=== PATIENT | female | born 1985 | race American Indian/Alaskan Native ===

== ENCOUNTER 2016-10-10 22:00 | Emergency (ER) | payer OTHER, MEDICAID ==
[2016-10-10 22:16] VITALS: BP 129/96
[2016-10-10] MEDS ORDERED: TYLENOL ONE (23:32)
[2016-10-10] MEDS ORDERED: TYLENOL PO ONE (23:35)
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
[2016-10-11] MEDS ORDERED: TORADOL IM ONE (00:59)
[2016-10-11] MEDS ORDERED: FLEXERIL PO ONE (00:59)
== END 2016-10-11 01:31 | disposition home or self-care (01) ==
LOC: ED 22:00
DX: M25.519 Pain in unspecified shoulder (principal); V49.9XXA Car occupant (driver) (passenger) injured in unspecified traffic accident, initial encounter; Y93.89 Activity, other specified; Y92.89 Other specified places as the place of occurrence of the external cause; Y99.8 Other external cause status
CPT/HCPCS: 96372; 99282; J1885

== ENCOUNTER 2017-05-23 16:53 | Emergency (ER) | payer MEDICAID ==
[2017-05-23] MEDS ORDERED: MOTRIN PO ONE (22:51)
[2017-05-23] MEDS ORDERED: TESSALON PERLES PO ONE (22:51)
--- NOTE | 2017-05-23 22:56 | Emergency Department Report ---
- General Chief Complaint: Upper Respiratory Infection Stated Complaint: FLU LIKE SYMPTOMS Time Seen by Provider: 05/23/17 22:30 Source: patient Mode of arrival: Ambulatory Limitations: No Limitations - History of Present Illness Initial Comments: This is a 31-year-old female nontoxic, well nourished in appearance, no acute signs of distress presents to the ED with c/o of productive cough, body aches, rhinorrhea, nasal congestion x3 days. Patient describes productive cough as yellow mucus production. Patient stated has been in close contact with son that is diagnosed with the flu. Patient denies any recent travels, long car, recent hospital stays. Patient denies any calf pain or calf tenderness. Patient denies any chest pain, short of breath, fever, chills, nausea, vomiting , hemoptysis, numbness, tingling, headache or stiff neck. Patient denies any drug allergies. Patient denies any allergies. PMH includes bronchitis. MD Complaint: cough, rhinorrhea, nasal congestion, other (body aches) -: days(s) (3) Severity: mild Severity scale (0 -10): 8 Quality: aching Consistency: constant Improves With: nothing Worsens With: nothing Context: sick contacts Associated Symptoms: rhinorrhea, nasal congestion, cough. denies: fever, chills , myalgias, diaphoresis, headache, sore throat, stiff neck, chest pain, shortness of breath, abdominal pain, nausea, vomiting, diarrhea, dysuria, rash, confusion, weight loss, epistaxis, hoarseness, ear pain Treatments Prior to Arrival: none - Related Data Previous Rx's Medication Instructions Recorded Last Taken Type Cyclobenzaprine [Flexeril 10 MG 10 mg PO QHS #24 tablet 10/11/16 Unknown Rx TAB] Diclofenac Potassium 50 mg PO BID #30 tablet 10/11/16 Unknown Rx Azithromycin [Zithromax Z-BRYCE] 250 mg PO DAILY #6 tablet 05/23/17 Unknown Rx Benzonatate [Tessalon Perle] 100 mg PO Q6H PRN #20 capsule 05/23/17 Unknown Rx Ibuprofen [Motrin] 600 mg PO Q8H PRN #30 tablet 05/23/17 Unknown Rx Oseltamivir [Tamiflu] 75 mg PO BID #14 cap 05/23/17 Unknown Rx Allergies Allergy/AdvReac Type Severity Reaction Status Date / Time No Known Allergies Allergy Verified 10/10/16 23:45 ED Review of Systems ROS: Stated complaint: FLU LIKE SYMPTOMS Other details as noted in HPI Constitutional: denies: chills, fever Eyes: denies: eye pain, eye discharge, vision change ENT: denies: ear pain, throat pain Respiratory: cough. denies: shortness of breath, wheezing Cardiovascular: denies: chest pain, palpitations Endocrine: no symptoms reported Gastrointestinal: denies: abdominal pain, nausea, diarrhea Genitourinary: denies: urgency, dysuria, discharge Musculoskeletal: denies: back pain, joint swelling, arthralgia Skin: denies: rash, lesions Neurological: denies: headache, weakness, paresthesias Psychiatric: denies: anxiety, depression Hematological/Lymphatic: denies: easy bleeding, easy bruising ED Past Medical Hx - Past Medical History Previous Medical History?: Yes Additional medical history: Bronchitis - Surgical History Past Surgical History?: Yes Additional Surgical History: 2 c sections and a tubal ligation - Social History Smoking Status: Never Smoker Substance Use Type: None - Medications Home Medications: Home Medications Medication Instructions Recorded Confirmed Last Taken Type Cyclobenzaprine [Flexeril 10 MG 10 mg PO QHS #24 tablet 10/11/16 Unknown Rx TAB] Diclofenac Potassium 50 mg PO BID #30 tablet 10/11/16 Unknown Rx Azithromycin [Zithromax Z-BRYCE] 250 mg PO DAILY #6 tablet 05/23/17 Unknown Rx Benzonatate [Tessalon Perle] 100 mg PO Q6H PRN #20 capsule 05/23/17 Unknown Rx Ibuprofen [Motrin] 600 mg PO Q8H PRN #30 tablet 05/23/17 Unknown Rx Oseltamivir [Tamiflu] 75 mg PO BID #14 cap 05/23/17 Unknown Rx ED Physical Exam - General Limitations: No Limitations General appearance: alert, in no apparent distress - Head Head exam: Present: atraumatic, normocephalic - Eye Eye exam: Present: normal appearance, PERRL, EOMI Pupils: Present: normal accommodation - ENT ENT exam: Present: normal exam, normal orophraynx, mucous membranes moist, TM's normal bilaterally, normal external ear exam - Neck Neck exam: Present: normal inspection, full ROM. Absent: tenderness, meningismus, lymphadenopathy, thyromegaly - Respiratory Respiratory exam: Present: normal lung sounds bilaterally. Absent: respiratory distress, wheezes, rales, rhonchi, stridor, chest wall tenderness, accessory muscle use, decreased breath sounds, prolonged expiratory - Cardiovascular Cardiovascular Exam: Present: regular rate, normal rhythm, normal heart sounds. Absent: irregular rhythm, systolic murmur, diastolic murmur, rubs, gallop - GI/Abdominal GI/Abdominal exam: Present: soft, normal bowel sounds. Absent: distended, tenderness, guarding, rebound, rigid, diminished bowel sounds - Rectal Rectal exam: Present: deferred - Extremities Exam Extremities exam: Present: normal inspection, full ROM, normal capillary refill. Absent: tenderness, pedal edema, joint swelling, calf tenderness - Back Exam Back exam: Present: normal inspection, full ROM. Absent: tenderness, CVA tenderness (R), CVA tenderness (L), muscle spasm, paraspinal tenderness, vertebral tenderness, rash noted - Neurological Exam Neurological exam: Present: alert, oriented X3, CN II-XII intact, normal gait, reflexes normal - Psychiatric Psychiatric exam: Present: normal affect, normal mood - Skin Skin exam: Present: warm, dry, intact, normal color. Absent: rash ED Course Vital Signs 05/23/17 22:06 Temperature 98.8 F Pulse Rate 104 H Respiratory 18 Rate Blood Pressure 105/75 O2 Sat by Pulse 99 Oximetry - Reevaluation(s) Reevaluation #1: 05/23/17 22:59 Patient is speaking in full sentences with no signs of distress noted. ED Medical Decision Making - Medical Decision Making This is a 31-year-old female that presents with upper respiratory infection and influenza. Patient is stable and was examined by me. Chest x-ray has been obtained and dictated by radiologist with normal exam. Patient is notified of x -ray results with no questions noted. Patient is in close contact with son that is dx with the flu. Due to patient having symptoms of influenza and upper respiratory infection I will treat patient empirically with Tamiflu and zpak. Patient was instructed to increase hydration, rest and take Motrin for fever episodes. Patient received Motrin and tesslone perrls in the ED. Vitals stable. Patient is nonfebrile and normal heart rate. Patient was orally hydrated and patient tolerated well known nausea or vomiting. Patient was instructed Follow-up with a primary care doctor in 3-5 days or if symptoms worsen and continue return to emergency room as soon as possible. At time time of discharge, the patient does not seem toxic or ill in appearance. No acute signs of distress noted. Patient agrees to discharge treatment plan of care. No further questions noted by the patient. Critical care attestation.: If time is entered above; I have spent that time in minutes in the direct care of this critically ill patient, excluding procedure time. ED Disposition Clinical Impression: Influenza Upper respiratory infection Qualifiers: URI type: unspecified URI Qualified Code(s): J06.9 - Acute upper respiratory infection, unspecified Disposition: DC- TO HOME OR SELFCARE Is pt being admited?: No Does the pt Need Aspirin: No Condition: Stable Instructions: Benzonatate (By mouth), Ibuprofen (By mouth), Azithromycin (By mouth), Oseltamivir (By mouth), Influenza (ED), Upper Respiratory Infection (ED) Additional Instructions: Follow-up with a primary care doctor in 3-5 days or if symptoms worsen and continue return to emergency room as soon as possible. Increase rest, hydration and take Motrin for fever episodes. Prescriptions: Azithromycin [Zithromax Z-BRYCE] 250 mg PO DAILY #6 tablet Benzonatate [Tessalon Perle] 100 mg PO Q6H PRN #20 capsule PRN Reason: Cough Ibuprofen [Motrin] 600 mg PO Q8H PRN #30 tablet PRN Reason: fever Oseltamivir [Tamiflu] 75 mg PO BID #14 cap Referrals: PRIMARY CARE, [Primary Care Provider] - 3-5 Days AYESHA CARDOZO MD [Staff Physician] - 3-[address] [facility] [Outside] - 3-5 Days [facility] [Outside] - 3-5 Days Forms: Work/School Release Form(ED)
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
[2017-05-23 23:50] VITALS: BP 110/76
== END 2017-05-23 23:50 | disposition home or self-care (01) ==
LOC: ED 16:53
DX: J11.1 Influenza due to unidentified influenza virus with other respiratory manifestations (principal); J06.9 Acute upper respiratory infection, unspecified
CPT/HCPCS: 71046

== ENCOUNTER 2017-09-06 13:29 | Emergency (ER) | payer OTHER, MEDICAID ==
[2017-09-06 16:12] LABS: Basophils % (Auto) 0.7 % (0.0-1.8); Eosinophils # (Auto) 0.2 K/mm3 (0.0-0.4); Eosinophils % (Auto) 3.4 % (0.0-4.3); Hematocrit 35.1 % (30.3-42.9); Hemoglobin 11.1 gm/dl (10.1-14.3); Lymphocytes # (Auto) 2.8 K/mm3 (1.2-5.4); Lymphocytes % (Auto) 53.6 % (13.4-35.0); Mean Corpuscular HGB Conc 32 % (30-34); Mean Corpuscular Hemoglobin 26 pg (28-32); Mean Corpuscular Volume 82 fl (79-97); Monocytes # (Auto) 0.3 K/mm3 (0.0-0.8); Monocytes % (Auto) 5.3 % (0.0-7.3); Platelet Count 341 K/mm3 (140-440); Red Blood Count 4.27 M/mm3 (3.65-5.03)
[2017-09-06 16:34] LABS: Creatine Kinase MB 1.4 ng/mL (0.0-4.0)
[2017-09-06 16:36] LABS: Albumin 4.6 g/dL (3.9-5); BUN/Creatinine Ratio 7; Blood Urea Nitrogen 5 mg/dL (7-17); Calcium 9.4 mg/dL (8.4-10.2); Hemolysis Index 5
[2017-09-06 16:42] LABS: Bilirubin,Direct < 0.2 mg/dL (0-0.2)
[2017-09-06 17:00] LABS: Alanine Aminotransferase 11 units/L (7-56)
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
[2017-09-06 21:45] VITALS: BP 119/84
== END 2017-09-06 21:45 | disposition home or self-care (01) ==
LOC: ED 13:29
DX: S80.211A Abrasion, right knee, initial encounter (principal); V89.2XXA Person injured in unspecified motor-vehicle accident, traffic, initial encounter; Y93.89 Activity, other specified; Y92.89 Other specified places as the place of occurrence of the external cause; Y99.8 Other external cause status
CPT/HCPCS: 36415; 70450; 72125; 73562; 80048; 80074; 82550; 82553; 83735; 84703; 85025; 99285; G0480; 80320

== ENCOUNTER 2017-11-27 12:32 | Emergency (ER) | payer MEDICAID, OTHER ==
[2017-11-27 12:52] VITALS: BP 116/83
== END 2017-11-27 18:20 | disposition left against medical advice (07) ==
LOC: ED 12:32
DX: Z48.02 Encounter for removal of sutures (principal); Z53.21 Procedure and treatment not carried out due to patient leaving prior to being seen by health care provider

== ENCOUNTER 2017-12-07 11:16 | Emergency (ER) | payer MEDICAID ==
[2017-12-07 11:22] VITALS: BP 141/90
[2017-12-07] MEDS ORDERED: MOTRIN PO ONE (12:51)
--- NOTE | 2017-12-07 12:56 | Emergency Department Report ---
ED ENT HPI - General Chief complaint: Dental/Oral Stated complaint: BROKE TOOTH/PAIN Time Seen by Provider: 12/07/17 12:39 Source: patient Mode of arrival: Ambulatory Limitations: No Limitations - History of Present Illness Initial comments: 32-year-old female with a past medical history of bronchitis but is also complaining of a fractured tooth 1 week in pain for several days. Patient concerned that may be affected since food since a call into the fractured tooth. She complains of mild facial swelling that has since resolved. No pains of fever, difficulty breathing, or difficulty swallowing. Pain worse with palpation and chewing. - Related Data Previous Rx's Medication Instructions Recorded Last Taken Type Cyclobenzaprine [Flexeril 10 MG 10 mg PO QHS #24 tablet 10/11/16 Unknown Rx TAB] Diclofenac Potassium 50 mg PO BID #30 tablet 10/11/16 Unknown Rx Azithromycin [Zithromax Z-BRYCE] 250 mg PO DAILY #6 tablet 05/23/17 Unknown Rx Benzonatate [Tessalon Perle] 100 mg PO Q6H PRN #20 capsule 05/23/17 Unknown Rx Ibuprofen [Motrin] 600 mg PO Q8H PRN #30 tablet 05/23/17 Unknown Rx Oseltamivir [Tamiflu] 75 mg PO BID #14 cap 05/23/17 Unknown Rx Ibuprofen [Motrin] 600 mg PO Q8H PRN #30 tablet 12/07/17 Unknown Rx Penicillin Vk [Veetids TAB] 500 mg PO QID 7 Days tablet 12/07/17 Unknown Rx traMADol [Ultram 50 MG tab] 50 mg PO Q6HR PRN #20 tablet 12/07/17 Unknown Rx Allergies Allergy/AdvReac Type Severity Reaction Status Date / Time No Known Allergies Allergy Verified 11/27/17 12:51 ED Dental HPI - General Chief complaint: Dental/Oral Stated complaint: BROKE TOOTH/PAIN Time Seen by Provider: 12/07/17 12:39 Source: patient Mode of arrival: Ambulatory Limitations: No Limitations - Related Data Previous Rx's Medication Instructions Recorded Last Taken Type Cyclobenzaprine [Flexeril 10 MG 10 mg PO QHS #24 tablet 10/11/16 Unknown Rx TAB] Diclofenac Potassium 50 mg PO BID #30 tablet 10/11/16 Unknown Rx Azithromycin [Zithromax Z-BRYCE] 250 mg PO DAILY #6 tablet 05/23/17 Unknown Rx Benzonatate [Tessalon Perle] 100 mg PO Q6H PRN #20 capsule 05/23/17 Unknown Rx Ibuprofen [Motrin] 600 mg PO Q8H PRN #30 tablet 05/23/17 Unknown Rx Oseltamivir [Tamiflu] 75 mg PO BID #14 cap 05/23/17 Unknown Rx Ibuprofen [Motrin] 600 mg PO Q8H PRN #30 tablet 12/07/17 Unknown Rx Penicillin Vk [Veetids TAB] 500 mg PO QID 7 Days tablet 12/07/17 Unknown Rx traMADol [Ultram 50 MG tab] 50 mg PO Q6HR PRN #20 tablet 12/07/17 Unknown Rx Allergies Allergy/AdvReac Type Severity Reaction Status Date / Time No Known Allergies Allergy Verified 11/27/17 12:51 ED Review of Systems ROS: Stated complaint: BROKE TOOTH/PAIN Other details as noted in HPI ED Past Medical Hx - Past Medical History Previous Medical History?: Yes Additional medical history: Bronchitis - Surgical History Past Surgical History?: Yes Additional Surgical History: 2 c sections and a tubal ligation - Social History Smoking Status: Never Smoker Substance Use Type: None - Medications Home Medications: Home Medications Medication Instructions Recorded Confirmed Last Taken Type Cyclobenzaprine [Flexeril 10 MG 10 mg PO QHS #24 tablet 10/11/16 Unknown Rx TAB] Diclofenac Potassium 50 mg PO BID #30 tablet 10/11/16 Unknown Rx Azithromycin [Zithromax Z-BRYCE] 250 mg PO DAILY #6 tablet 05/23/17 Unknown Rx Benzonatate [Tessalon Perle] 100 mg PO Q6H PRN #20 capsule 05/23/17 Unknown Rx Ibuprofen [Motrin] 600 mg PO Q8H PRN #30 tablet 05/23/17 Unknown Rx Oseltamivir [Tamiflu] 75 mg PO BID #14 cap 05/23/17 Unknown Rx Ibuprofen [Motrin] 600 mg PO Q8H PRN #30 tablet 12/07/17 Unknown Rx Penicillin Vk [Veetids TAB] 500 mg PO QID 7 Days tablet 12/07/17 Unknown Rx traMADol [Ultram 50 MG tab] 50 mg PO Q6HR PRN #20 tablet 12/07/17 Unknown Rx ED Physical Exam - General Limitations: No Limitations - Other Other exam information: General: No limitations, patient is alert in no acute distress Head exam: Atraumatic, normocephalic Eyes exam: Normal appearance ENT: Moist mucous membrane, fractured tooth #13 with gum tenderness and tenderness to percussion of the tooth. No periapical abscess or swelling. Neck exam: Normal inspection, full range of motion, no meningismus nontender Respiratory exam: Clear to auscultation bilateral, no wheezes, rales, crackles Cardiovascular: Normal rate and rhythm, normal heart sounds Abdomen: Soft, nondistended, and nontender, with normal bowel sounds, no rebound, or guarding Extremity: Full range of motion normal inspection no deformity Back: Normal Inspection, full range of motion, no tenderness Neurologic: Alert, oriented x3, cranial nerves intact, no motor or sensory deficit Psychiatric: normal affect, normal mood Skin: Warm, dry, intact ED Course Vital Signs 12/07/17 11:19 Temperature 99.1 F Pulse Rate 106 H Respiratory 18 Rate Blood Pressure 141/90 O2 Sat by Pulse 100 Oximetry - Reevaluation(s) Reevaluation #1: 12/07/17 12:53 Motion for pain ED Medical Decision Making - Medical Decision Making Patient is a fractured tooth with associated, tenderness and tooth tenderness to percussion Will be treated symptomatically for pain Antibiotic Dental referral encouraged Provided additional dental resources for follow-up - Differential Diagnosis fractured tooth, dental caries, dental abscess Critical Care Time: No Critical care attestation.: If time is entered above; I have spent that time in minutes in the direct care of this critically ill patient, excluding procedure time. ED Disposition Clinical Impression: Tooth fracture, Dental infection Disposition: TO HOME OR SELFCARE Is pt being admited?: No Does the pt Need Aspirin: No Condition: Stable Instructions: Toothache (ED) Additional Instructions: Take the medication as prescribed. Follow up with dentist or one of the dental resources provided. Return if symptoms worsen as indicated by your discharge instructions Prescriptions: Ibuprofen [Motrin] 600 mg PO Q8H PRN #30 tablet PRN Reason: Pain Penicillin Vk [Veetids TAB] 500 mg PO QID 7 Days tablet traMADol [Ultram 50 MG tab] 50 mg PO Q6HR PRN #20 tablet PRN Reason: Pain Referrals: [facility] [Outside] - 3-5 Days Time of Disposition: 12:56
== END 2017-12-07 13:05 | disposition home or self-care (01) ==
LOC: ED 11:16
DX: S02.5XXA Fracture of tooth (traumatic), initial encounter for closed fracture (principal); K04.7 Periapical abscess without sinus; Z98.51 Tubal ligation status; X58.XXXA Exposure to other specified factors, initial encounter; Y93.89 Activity, other specified; Y92.89 Other specified places as the place of occurrence of the external cause; Y99.8 Other external cause status
CPT/HCPCS: 99282